=== PATIENT | female | born 1930 | race Two or more races ===

== ENCOUNTER 2018-01-16 08:04 | Outpatient (CLI) | payer OTHER | END 2018-01-16 08:08 | disposition home or self-care (01) | LOC: SONOGRAMA 08:04 | DX: R10.2 Pelvic and perineal pain (principal) ==

== ENCOUNTER 2019-12-21 08:17 | Outpatient (CLI) | payer OTHER | END 2019-12-21 08:36 | disposition home or self-care (01) | LOC: SONOGRAMA 08:17 | PROVIDERS: ATTEND Internal Medicine Gastroenterology | DX: R10.84 Generalized abdominal pain (principal) ==

== ENCOUNTER 2019-12-24 08:02 | Outpatient (CLI) | payer OTHER | END 2019-12-24 08:07 | disposition home or self-care (01) | LOC: TOM 08:02 | PROVIDERS: ATTEND Internal Medicine Gastroenterology | DX: R10.84 Generalized abdominal pain (principal); R63.4 Abnormal weight loss; R19.5 Other fecal abnormalities ==